=== PATIENT | female | born 1960 | race Caucasian/White ===

== ENCOUNTER 2018-04-10 02:37 | Inpatient (IN) | payer OTHER ==
[~2018-04-10] VITALS: Ht 162.6 cm; Wt 104.0 kg
[~2018-04-10 02:37] MED LIST: ASPIRIN81 M4 PO; DIOVAN80 M1 PO; GLUCOPHAGE1000 M1 PO; LEVEMIR FL100 UNIT/1 SC; LEVEMIR100 UNIT/1 SC; MELOXICAM15 M1 PO
--- NOTE | 2018-04-10 15:09 | RADIOLOGY REPORT ---
EXAMINATION: XR PORTABLE CHEST CLINICAL INFORMATION: Status post pericardial window COMPARISON: 04/03/2018 TECHNIQUE: Portable frontal view of the chest was obtained. FINDINGS: Lungs are well expanded and clear. No pulmonary edema, consolidation, pneumothorax or pleural effusion. Cardiac silhouette is normal in size. A mediastinal drainage catheter projects over the midline of the cardiac silhouette. The visualized bones are intact. The upper abdomen is unremarkable. IMPRESSION: 1. No acute pulmonary disease. 2. Cardiac silhouette is normal in size and a single mediastinal drainage tube is noted.
[2018-04-10 16:00] VITALS: BP 160/82
--- NOTE | 2018-04-10 17:05 | Admission Certification ---
Admission Certification Certification Statement - As attending physician, I certify that at the time of - admission, based on clinical presentation, severity of - symptoms, need for further diagnostic testing and - therapeutic interventions, and risk of adverse outcomes - without in-hospital treatment, in my clinical assessment, - this patient requires an acute hospital stay for a minimum - of two nights or longer. I have also considered psychsocial - factors such as support system, advanced age, financial - issues, cognitive issues, and failed out-patient treatments, - past re-admission history, safety of patient, and lack of - compliance as applicable. Specific rationale supporting this admission is: Major cardiac surgery with extended intensive care unit stay
--- NOTE | 2018-04-10 17:08 | Operative Report ---
Operative/Inv Procedure Report Surgery Date: 04/10/18 Name of Procedure: Pericardial window Pre-Operative Diagnosis: Pericardial effusion Post-Operative Diagnosis: Same Estimated Blood Loss: less than 50ml Surgeon/Production Maintenance Technician: Mckenzie Garcia MD,Immanuel Anna Anesthesia: general endotracheal tube Operative/Procedure Note Note: After placement of monitoring lines and induction of general anesthesia patient was prepped and draped in a sterile fashion. An incision was made above the xiphoid and lower portion of the sternum. The rectus fascia was divided in the midline. The xiphoid was resected to allow for visualization and the diaphragmatic attachments to the undersurface of the sternum were divided with electrocautery. The edge of the pericardium was grasped and incised. A 300 cc of serous effusion was drained completely. The fluid was sent for cytology culture cell count and chemistries. A portion of the pericardium anteriorly was resected and sent for permanent pathology. The pericardium was then drained with a 36 Wolof angled chest tube. The fascia was reapproximated in the midline and the skin was reapproximated with a running Vicryl suture. The patient tolerated the procedure well was brought to the recovery room awake and extubated in stable condition. CC: Guero YOU PHD,Rj Hinton
--- NOTE | 2018-04-10 17:10 | PN- Thoracic Surgery ---
Subjective Subjective: POSTOP CHECK Patient reports incisional postop pain, controlled with second watch sergeant. She states she is hungry and is requesting to eat. She reports tolerating ice chips. She reports voiding. Denies chest pain, sob or difficulty breathing. Objective Vital Signs and I&Os Vital Signs Date Time Temp Pulse Resp B/P B/P Pulse O2 O2 Flow FiO2 Mean Ox Delivery Rate 04/10 1450 100 Nasal 3.0L Cannula Physical Exam: Vitals - afebrile, HR 107, RR 18, BP 160/82 100% on 3L Gen - resting comfortably in nad Cardiac - distant heart sounds noted Chest - midline dressing in place, with scant drainage, anterior CT to waterseal with 90 cc serosanguineous drainage noted, no air leak, appropriately tender kamille-incisionally Lungs - CTAB Abd - softly distended, nontender Ext - alps in place, no edema or calf pain Current Medications: Current Medications Sig/Harley Start time Last Medication Dose Route Stop Time Status Admin Acetaminophen 1,000 MG Q6P PRN 04/10 1545 AC IV 04/11 1544 Cefazolin Sodium 2 GM IQ8 04/10 1600 AC N/A 1 UNIT IV 04/11 0029 Dextrose/Sodium 1,000 ML .[id number] 04/10 1545 AC Chloride IV Docusate Sodium 100 MG DAILY NEEDED PRN 04/10 1545 AC PO Heparin Sodium 5,000 UNIT Q8 04/10 2200 AC (Porcine) SC Hydromorphone HCl 50 MG Q24H PRN 04/10 1545 CAN Sodium Chloride 45 ML IV Hydromorphone HCl 50 MG Q24H PRN 04/10 1500 AC Sodium Chloride 45 ML IV Insulin Aspart 0 TIDAC 04/10 1700 AC SC Losartan Potassium 25 MG DAILY 04/11 0900 AC PO Nicotine 21 MG DAILY 04/10 1419 AC TOP Polyethylene Glycol 17 GM DAILY NEEDED PRN 04/10 1545 AC PO Results Last 48 Hours of Labs: Laboratory Tests 04/10 04/10 UNK UNK Hematology Lymphocytes (%) 65 % Normal PMNs (%) 4 Misc Hematology Test (%) Other Body Source Fluid WBC (0 - 5 /CUMM) Fld Mesothelial Cells (%) Fld Total RBCs Counted (0 /CUMM) Fluid Tot Bilirubin (mg/dL) 0.3 Fluid LDH (U/L) 562 Fluid Amylase (U/L) < 30 Recent Imaging Studies: SERVICE DATE: 04/10/18140 EXAM TYPE: RAD - XRY-PORTABLE CHEST XRAY EXAMINATION: XR PORTABLE CHEST CLINICAL INFORMATION: Status post pericardial window COMPARISON: 04/03/2018 TECHNIQUE: Portable frontal view of the chest was obtained. FINDINGS: Lungs are well expanded and clear. No pulmonary edema, consolidation, pneumothorax or pleural effusion. Cardiac silhouette is normal in size. A mediastinal drainage catheter projects over the midline of the cardiac silhouette. The visualized bones are intact. The upper abdomen is unremarkable. IMPRESSION: 1. No acute pulmonary disease. 2. Cardiac silhouette is normal in size and a single mediastinal drainage tube is noted. Assessment/Plan Assessment/Plan 57 F smoker with a history of DM, HTN, COPD and ESTHER s/p pericardial window w/ SHARRON secondary to pericardial effusion, with postop pain Advance to clear liquid diet, IVF Postop abx - ancef x2 Dilaudid second watch sergeant, IV Tylenol for pain CT to WS x 5 days ISS, fingersticks tid ac/hs TRC, wean O2 Nicotine patch DVT ppx - hsq, alps Encourage oob ambulation F/u OR cultures Labs in am Core Measures Venous Thromboembolism VTE Risk Factors Surgery No Mechanical VTE Prophylaxis d/t N/A MechProphylax Ordered No VTE Pharm Prophylaxis d/t NA PharmProphylax ordered
[2018-04-10 18:00] VITALS: BP 113/51
[2018-04-10 19:47] VITALS: BP 131/69
[2018-04-10 22:00] VITALS: BP 143/71
[2018-04-11] VITALS (9 sets, daily range): BP systolic 108–148; BP diastolic 52–83
[2018-04-11 04:47] LABS: ABSOLUTE BASOPHIL COUNT 0 /CUMM (0.0-0.2); ABSOLUTE EOSINOPHIL COUNT 0 /CUMM (0.0-0.7); ABSOLUTE GRANULOCYTE CT 12.1 /CUMM (1.4-6.5); ABSOLUTE LYMPH COUNT 1.4 /CUMM (1.2-3.4); BASOPHIL % 0 % (0.0-2.0); EOSINOPHIL % 0 % (0-5); GRANULOCYTE % 83.6 % (42.2-75.2); HEMATOCRIT 39.7 % (37-47); MEAN CORPUSCULAR HGB 22.6 PG (27.0-31.0); MEAN CORPUSCULAR HGB CONC 31.5 G/DL (33.0-37.0); MEAN CORPUSCULAR VOLUME 71.6 FL (81.0-99.0); MEAN PLATELET VOLUME 10.8 FL (7.4-10.4); PLATELET COUNT 252 /CUMM (130-400); RED BLOOD CELL CT 5.54 /CUMM (4.20-5.40); WHITE BLOOD CELL COUNT 14.5 /CUMM (4.8-10.8)
--- NOTE | 2018-04-11 05:58 | PN- Thoracic Surgery ---
See Addendum Subjective Subjective: PT IN BED WITH PAIN, USING STAND IN OFTEN. DENEIS SOB BUT IS COUGHING. DENIES FEVER VOIDING, +FLATUS. HAS NOT BEEN OOB YET Objective Vital Signs and I&Os Vital Signs Date Time Temp Pulse Resp B/P B/P Pulse O2 O2 Flow FiO2 Mean Ox Delivery Rate 04/11 0400 97.4 103 18 120/60 04/11 0400 92 Nasal 3.0L Cannula 04/11 0241 90 Nasal 2.0L Cannula 04/11 0200 102 18 128/69 04/11 0000 99.2 107 18 136/70 04/11 0000 92 Nasal 2.0L Cannula 04/11 0000 99.2 107 18 116/70 92 Nasal 2.0L Cannula 04/10 2200 108 20 143/71 04/10 1947 98.1 112 20 131/69 04/10 1947 94 Nasal 5.0L Cannula 04/10 1910 Nasal 2.0L Cannula 04/10 1800 98.0 110 13 113/51 04/10 1600 98.2 107 18 160/82 04/10 1600 96 Nasal 2.0L Cannula 04/10 1600 98.2 107 16 160/82 96 Nasal 2.0L Cannula 04/10 1450 100 Nasal 3.0L Cannula Intake & Output 04/11 0800 04/11 0000 04/10 1600 04/10 0800 04/10 0000 04/09 1600 Intake Total 1030 Output Total 1300 Balance -270 Intake, IV 640 Intake, Oral 390 Output, Chest 200 Tube Drainage Output, Urine 1100 Patient 252 lb Weight Weight Bed scale Measurement Method Physical Exam: GEN- NAD RESP- CLEAR CARDIAC- RRR ABD- OBESE, SOFT, NONTENDER. MEDIASTINAL TUBE IN PLACE UNDER STERNUM, SOME SEROSAND DRAINAGE ON DRESSING BUT NOT SATURATED. CT- 350CC SEROSANG OVER LAST 8 HOURS Results Last 48 Hours of Labs: Laboratory Tests 04/11 04/10 04/10 0420 UNK UNK Chemistry Sodium (137 - 145 mmol/L) 135 L Potassium (3.5 - 5.1 mmol/L) 4.5 Chloride (98 - 107 mmol/L) 100 Carbon Dioxide (22 - 30 mmol/L) 27 Anion Gap (5 - 16) 8 BUN (7 - 17 mg/dL) 13 Creatinine (0.5 - 1.0 mg/dL) 0.4 L Estimated GFR (>60 ml/min) > 60 BUN/Creatinine Ratio (7 - 25 %) 32.5 H Hematology CBC w Diff MAN DIFF ORDERED WBC (4.8 - 10.8 /CUMM) 14.5 H RBC (4.20 - 5.40 /CUMM) 5.54 H Hgb (12.0 - 16.0 G/DL) 12.5 Hct (37 - 47 %) 39.7 MCV (81.0 - 99.0 FL) 71.6 L MCH (27.0 - 31.0 PG) 22.6 L MCHC (33.0 - 37.0 G/DL) 31.5 L RDW (11.5 - 14.5 %) 15.0 H Plt Count (130 - 400 /CUMM) 252 MPV (7.4 - 10.4 FL) 10.8 H Gran % (42.2 - 75.2 %) 83.6 H Lymphocytes % (20.5 - 51.1 %) 9.7 L Monocytes % (1.7 - 9.3 %) 6.7 Eosinophils % (0 - 5 %) 0 Basophils % (0.0 - 2.0 %) 0 Absolute Granulocytes (1.4 - 6.5 /CUMM) 12.1 H Segmented Neutrophils (42.2 - 75.2 %) 81 H Band Neutrophils (0.0 - 5.0 %) 1 Absolute Lymphocytes (1.2 - 3.4 /CUMM) 1.4 Lymphocytes (20.5 - 51.1 %) 10 L 65 Monocytes (1.7 - 9.3 %) 8 Absolute Monocytes (0.10 - 0.60 /CUMM) 1.0 H Absolute Eosinophils (0.0 - 0.7 /CUMM) 0 Absolute Basophils (0.0 - 0.2 /CUMM) 0 % Normal PMNs (%) 4 Platelet Estimate (ADEQUATE) ADEQUATE Polychromasia 1+ Hypochromic-Microcytic 1+ Poikilocytosis 1+ Basophilic Stippling 1+ Anisocytosis 1+ Microcytic Cells 1+ Ovalocytes 1+ Misc Hematology Test (%) Other Body Source Fluid WBC (0 - 5 /CUMM) Fld Mesothelial Cells (%) Fld Total RBCs Counted (%) 100 Fluid Tot Bilirubin (mg/dL) 0.3 Fluid LDH (U/L) 562 Fluid Amylase (U/L) < 30 Assessment/Plan Assessment/Plan 57YO F SP PERICARDIAL WINDOW POD1. STABLE DC IVC, URINE OUTPUT VERY GOOD DIABETIC DIET INSULIN SLIDING SCALE CT- CONT LCWS, LIKELY TO BE IN FOR AT LEAST 5 DAYS CONT STAND IN FOR NOW DVT PPX- ALPS AND HSQ OOB ENCOURAGE IS Core Measures Venous Thromboembolism VTE Risk Factors Surgery No Mechanical VTE Prophylaxis d/t N/A MechProphylax Ordered No VTE Pharm Prophylaxis d/t NA PharmProphylax ordered
--- NOTE | 2018-04-11 06:42 | RADIOLOGY REPORT ---
EXAMINATION: XR PORTABLE CHEST CLINICAL INFORMATION: Chest discomfort COMPARISON: 04/10/2018 TECHNIQUE: Portable frontal view of the chest was obtained. FINDINGS: Lung volumes are symmetric. There is suggestion of trace left basilar atelectasis. No focal consolidation is seen. No evidence of pneumothorax, pleural effusion, or pulmonary edema. The cardiac silhouette is at the upper limits of normal in size. No acute osseous findings are seen. IMPRESSION: No acute cardiopulmonary findings.
--- NOTE | 2018-04-11 10:31 | Patient Discharge Instructions ---
Discharge Instructions General Discharge Information You were seen/treated for: Pericardial effusion You had these procedures: Pericardial window on 04/10/18 Watch for these problems: Increased pain, fever, chills, chest pain, shortness of breath, redness, swelling or drainage from incision No bath, but you may shower: Yes Other wound care: Keep incision clean and dry Continue on indomethacin as an anti-inflammatory to prevent recurrent pericardial fluid. Special Instructions: Follow-up with Dr. Rincon in approximately 7-10 days You may keep the dressing in place until then. If it falls off, apply a waterproof bandage to the site if available. Do not submerge the wound but you may shower Please call to schedule follow-up appointment with ribbon weaver Dr. Jack in 2 weeks Diet Continue normal diet: Yes Recommended Diet: Diabetic Activity Full Activity/No Limits: No Activity Self Limited: Yes Pounds, do NOT lift more than: 10 Other activity limits: No heavy lifting or strenous activity Acute Coronary Syndrome Inclusion Criteria At DC or during hospital stay patient has or had the following: ACS DIAGNOSIS No Discharge Core Measures Meds if any: Prescribed or Continued at Discharge Meds if any: NOT Prescribed or Continued at Discharge Congestive Heart Failure Inclusion Criteria At DC or during hospital stay patient has or had the following: CHF DIAGNOSIS No Discharge Core Measures Meds if any: Prescribed or Continued at Discharge Meds if any: NOT Prescribed or Continued at Discharge Cerebrovascular accident Inclusion Criteria At DC or during hospital stay patient has or had the following: CVA/TIA Diagnosis No Discharge Core Measures Meds if any: Prescribed or Continued at Discharge Meds if any: NOT Prescribed or Continued at Discharge Venous thromboembolism Inclusion Criteria VTE Diagnosis No VTE Type NONE VTE Confirmed by (Test) NONE Discharge Core Measures - Per Current guidelines, there needs to be overlap - treatment for the first 5 days of Warfarin therapy. - If discharged on Warfarin prior to 5 days of - overlap therapy, the patient will need to be - assessed for post discharge needs including - *Post discharge parental anticoagulation - *Warfarin and/or parental anticoagulation education - *Follow up date to check INR post discharge At least 5 days overlap therapy as Inpatient No Meds if any: Prescribed or Continued at Discharge Note: Overlap Therapy is Warfarin and Anticoagulant Meds if any: NOT Prescribed or Continued at Discharge
--- NOTE | 2018-04-11 12:12 | ECHOCARDIOGRAM REPORT ---
PIERO PAN Age: 57 : Gender: F Exam Date: 04/10/2018 11:52 Exam Location: Outpatient Ht (in): 64 Wt (lb): 250 BSA: 2.32 BP: 124 / 76 Ordering Physician: Immanuel Rincon MD Referring Physician: Immanuel Rincon MD Technologist: Rick Armstrong RDCS Room Number: Indications: PERICARDIAL EFFUSION Rhythm: Sinus Technical Quality: Good Medications Propofol administered by Anesthesiology. Ease of Transducer Insertion No Difficulty Complications None. Technical Difficulty FINDINGS Left Ventricle Normal global left ventricular size, wall thickness, systolic function with no obvious regional wall motion abnormalities. Right Ventricle Right ventricle not well visualized, grossly normal. Right Atrium Normal right atrial size. Left Atrium Normal left atrial size. LA Appendage Normal left atrial appendage. IA Septum Normal interatrial septum. Mitral Valve Mitral valve thickened. Mild mitral regurgitation. Aortic Valve Trileaflet aortic valve. Focal thickening of the aortic valve cusps. No aortic stenosis. No aortic regurgitation. Tricuspid Valve Structurally normal tricuspid valve. Pulmonic Valve Structurally normal pulmonic valve. Pericardium Moderate pericardial effusion. Echocardiographic findings suggest a mildly hemodynamically significant pericardial effusion. Great Vessels Normal size aortic root and proximal ascending aorta. CONCLUSIONS INTRAOPERATIVE SHARRON Impression: 1. Minimal aortic sclerosis 2. Mild mitral leaflet thickening with mild mitral insufficiency 3. A moderate sized circumferential pericardial effusion is present which is most prominent posteriorly. There is evidence of early hemodynamic compromise with mild right atrial systolic collapse, best seen on the 4 chamber view. 4. The left atrium and left atrial appendage appear normal. 5. The left ventricular chamber size and systolic function are normal 6. The right heart structures appear normal; a Eustachian valve remnant is present. 7. There is no evidence of atrial level shunt; an agitated contrast saline injection was not performed. 8. The ascending aorta appears normal. The patient was monitored by SHARRON throughout the surgical procedure with no evidence of anatomic issues or complications. At the completion of the surgical procedure, a complete set of images was again obtained and there was no evidence of any significant residual pericardial fluid. At that time, the SHARRON probe was removed. No complications were incurred from the SHARRON procedure. Charley Ovalles M.D. (Electronically Signed) Final Date: 11 April 2018 12:11 MEASUREMENTS (Male / Female) Normal Values
--- NOTE | 2018-04-11 14:49 | Cons- Cardiology ---
General Information and HPI Consulting Request Date of Consult: 04/11/18 Requested By: Mceknzie Garcia MD,Immanuel Anna History of Present Illness: Hayley is a 57 year old female with history of hypertension, tobacco abuse and obesity who initially presented for a cardiac clearance prior to bariatric surgery. This patient underwent an echocardiogram that showed a small to moderate pericardial effusion of unclear etiology but without any hemodynamic findings that would be consistent with tamponade. At her baseline she can walk at a brisk pace for a good distance. She will note occasional shortness of breath with activity but it is not a prominent symptom. There was no associated orthopnea. More recently this patient has noted lightheadedness. Otherwise she denies any chest pain, pressure or tightness. She will feel her heart racing once every couple on months for a short period. These palpitations begin and end suddenly and are not associated with lightheadedness or shortness of breath. In consideration of a persistent pericardial effusion that has not resolved on multiple serial echo's it was decided to perform a pericardial window for both diagnosis and therapeutics. Her most recent ECG did show low voltage and tachycardia. She is now doing well post procedure. In addition to her echocardiogram which showed a normal EF of 60% she has a moderate pericardial effusion, mild LVH and trace TR. The patient also had a stress test. This study showed a small anterior fixed defect most likely related to breast tissue attenuation artifact. No ischemia was identified and her EF was normal at 69%. Allergies/Medications Allergies: Coded Allergies: No Known Allergies (04/03/18) Home Med List: Insulin Detemir (Levemir Flextouch) 100 UNIT/ML (3 ML) INSULN.PEN 60 U SC QHS DM (Reported) Meloxicam 15 MG TABLET 1 TAB PO DAILY PAIN (Reported) Metformin HCl (Glucophage) 1,000 MG TABLET 1 TAB PO BID DIABETES (Reported) Valsartan (Diovan) 80 MG TABLET 1 TAB PO DAILY BP (Reported) Past History Medical History Blood Transfusion Hx: No Neurological: peripheral neuropathy, vertigo EENT: hearing loss Cardiovascular: hypertension, pericardial effusion Respiratory: bronchitis, COPD, obstructive sleep apnea Musculoskeletal: FRACTURE (L ANKLE/R ARM) Psychiatric: anxiety Endocrine: diabetes, obesity Other Medical Hx: drainage of abcess on buttock left ankle and right humeral fractures Surgical History Surgical History: breast biopsy, , PILONIDAL CYST REMOVAL, tubal ligation Psychosocial History Where Do You Live? Home Services at Home: None Smoking Status: Current Everyday Smoker Exam & Diagnostic Data Vital Signs and I&O Vital Signs Date Time Temp Pulse Resp B/P B/P Pulse O2 O2 Flow FiO2 Mean Ox Delivery Rate 04/11 1200 98.2 99 18 140/82 04/11 1000 98.0 130 24 140/78 04/11 0920 93 Nasal 3.0L Cannula 04/11 0912 105 138/80 04/11 0800 97.7 94 18 128/72 04/11 0800 94 Nasal 3.0L Cannula 04/11 0800 97.7 97 18 128/72 95 Nasal 3.0L Cannula 04/11 0400 97.4 103 18 120/60 04/11 0400 92 Nasal 3.0L Cannula 04/11 0241 90 Nasal 2.0L Cannula 04/11 0200 102 18 128/69 04/11 0000 99.2 107 18 136/70 04/11 0000 92 Nasal 2.0L Cannula 04/11 0000 99.2 107 18 116/70 92 Nasal 2.0L Cannula 04/10 2200 108 20 143/71 04/10 1947 98.1 112 20 131/69 04/10 1947 94 Nasal 5.0L Cannula 04/10 1910 Nasal 2.0L Cannula 04/10 1800 98.0 110 13 113/51 04/10 1600 98.2 107 18 160/82 04/10 1600 96 Nasal 2.0L Cannula 04/10 1600 98.2 107 16 160/82 96 Nasal 2.0L Cannula 04/10 1450 100 Nasal 3.0L Cannula Intake & Output 04/11 1600 04/11 0800 04/11 0000 04/10 1600 04/10 0800 04/10 0000 Intake Total 1030 Output Total 1300 Balance -270 Intake, IV 640 Intake, Oral 390 Output, Chest 200 Tube Drainage Output, Urine 1100 Patient 252 lb Weight Weight Bed scale Measurement Method Physical Exam: General: WD/WN male in NAD; alert and oriented x 3 HEENt: NC/AT, PERRL, EOMI Neck: no JVD, no carotid bruit Heart: RRR w/o murmur Lungs: clear bilaterally Abdomen: soft, NT, +ve bowel sounds Extremities: no edema Assessment/Plan Assessment/Plan * This patient is noted to have a normal EF but does have a moderate pericardial effusion with mild right atrial collapse that is consistent with early tamponade although there is no respiratory flow variation across her mitral valve that is definitely diagnostic of tamponade. The patient feels well except for exertional shortness of breath that is likely due to her being overweight. She also had some lightheadedness. Due to her persistent effusion of unclear etiology it was decided to pursue a pericardial window for both diagnostic and therapeutic purposes. This procedure went well and she feels well except for some incisional discomfort. Cytology is pending but the patient is stable for discharge with follow up in the office to review her results if okay with surgery. * This patient has exertional shortness of breath that may well be related to COPD or even obesity. In consideration of her abnormal ECG that shows inferior Q waves suggestive of prior OK and considering multiple risk factors for coronary artery disease including tobacco abuse, hypertension and obesity, the patient was risk stratified with a stress test that was negative for ischemia. Consult Acknowledgment - Thank you for your consult request.
[2018-04-12] VITALS (7 sets, daily range): BP systolic 106–120; BP diastolic 58–76
--- NOTE | 2018-04-12 05:53 | PN- Thoracic Surgery ---
See Addendum Subjective Subjective: feeling ok, using claims service representative, pain improved, limited oob, no cp/sob, "bored" Objective Vital Signs and I&Os Vital Signs Date Time Temp Pulse Resp B/P B/P Pulse O2 O2 Flow FiO2 Mean Ox Delivery Rate 04/12 0400 97.4 100 16 116/70 04/12 0400 93 Nasal 1.0L Cannula 04/12 0400 97.4 100 16 116/70 93 Nasal 1.0L Cannula 04/12 0038 92 Nasal 1.0L Cannula 04/12 0000 97.3 97 18 106/60 04/12 0000 92 Nasal 1.0L Cannula 04/12 0000 97.3 97 18 106/60 92 Nasal 1.0L Cannula 04/11 2227 100 22 04/11 2039 94 Nasal 1.0L Cannula 04/11 1800 97.5 98 16 110/60 04/11 1600 97.8 100 24 108/52 04/11 1600 97.8 100 24 108/52 93 Nasal 1.0L Cannula 04/11 1600 93 Nasal 1.0L Cannula 04/11 1400 97.7 102 22 140/80 04/11 1200 98.2 99 18 140/82 04/11 1200 91 Nasal 1.0L Cannula 04/11 1200 97.8 98 23 148/83 89 Room Air 04/11 1000 98.0 130 24 140/78 04/11 0920 93 Nasal 3.0L Cannula 04/11 0912 105 138/80 04/11 0800 97.7 94 18 128/72 04/11 0800 94 Nasal 3.0L Cannula 04/11 0800 97.7 97 18 128/72 95 Nasal 3.0L Cannula Intake & Output 04/12 0800 16 0000 15 1600 15 0800 04/11 0000 04/10 1600 Intake Total 876 161 2974 Output Total 370 590 9502 Balance -275 239 -270 Intake, IV 125 249 640 Intake, Oral 240 400 390 Output, Chest 40 60 200 Tube Drainage Output, Urine 902 036 6661 Patient 252 lb Weight Weight Bed scale Measurement Method Physical Exam: gen- nad card-s1s2 pulm- ctab, mediastinal tube in place, ttp at insertion site, dressing w sersang staining abd-soft nt ext-calves soft nt CT: 130/24hrs, serosang, no al UO: nr/600/350 FS: 331, 286, 335 Assessment/Plan Assessment/Plan A- POD2 sp pericardial window with mediastinal tube placement for incidental finding of significant pericardial effusion, stable, with elevated FS. P- dc claims service representative, try prn pain meds, HL riss, added 30 levemir daily (may need to increase, home dose 60qd) ada diet as tolerated CT to lcws, keep in place until tues dvt ppx will dw attending
[2018-04-13 07:02] VITALS: BP 112/88
--- NOTE | 2018-04-13 07:11 | PN- Thoracic Surgery ---
Subjective Subjective: Patient reports pain when she cough, which is controlled with oral percocet. She reports limited ambulation. She is tolerating an ada diet. She reports passing flatus. Denies moving her bowels. She denies nausea or vomiting, chest pain, sob or difficulty breathing. She states her accuchecks at home are normally 100-150. She offers no other complaints. Objective Vital Signs and I&Os Vital Signs Date Time Temp Pulse Resp B/P B/P Pulse O2 O2 Flow FiO2 Mean Ox Delivery Rate 04/13 0702 98.2 96 20 112/88 95 Nasal 2.0L Cannula 04/13 0000 94 Nasal 2.0L Cannula 04/12 2205 99.1 100 20 120/70 95 Nasal 2.0L Cannula 04/12 1750 98.7 106 20 110/58 90 Room Air 04/12 1615 94 Room Air Room Air 04/12 1600 Room Air 04/12 1600 97.5 105 18 106/58 91 Room Air 04/12 1200 97.8 100 18 118/68 94 Room Air 04/12 0855 118/76 04/12 0800 Nasal 2.0L Cannula 04/12 0800 97.8 97 19 118/76 96 Nasal 3.0L Cannula Intake & Output 04/13 0800 17 0000 04/12 1600 04/12 0800 04/12 0000 04/11 1600 Intake Total 200 600 980 187 365 649 Output Total 15 830 1620 640 410 Balance 185 600 150 -1433 -275 239 Intake, IV 20 187 125 249 Intake, Oral 200 600 960 240 400 Number 0 Bowel Movements Output, Chest 15 30 70 40 60 Tube Drainage Output, Urine 800 1550 600 350 Patient 249 lb Weight Weight Bed scale Measurement Method Physical Exam: Gen - nad Cardiac - S1S2 noted Lungs - diminished at bases Chest - mediastinal tube in place, dressing w sersang staining, approx 50 cc serosang drainage in the last night, no air leak, appropriately tender Abd - soft, normoactive bowel sounds, nontender Ext - no edema or calf tenderness Current Medications: Current Medications Sig/Harley Start time Last Medication Dose Route Stop Time Status Admin Albuterol Sulfate 3 ML Q4P PRN 04/10 1930 AC 04/12 INH 0023 Docusate Sodium 100 MG BID 04/11 0900 AC 04/12 PO 2149 Heparin Sodium 5,000 UNIT Q8 04/10 2200 AC 04/12 (Porcine) SC 1438 Hydromorphone HCl 2 MG Q4P PRN 04/12 0615 AC 04/13 PO 0621 Hydromorphone HCl 4 MG Q4P PRN 04/12 0615 AC PO Insulin Aspart 0 AT BEDTIME 04/11 2100 AC 04/11 SC 2219 Insulin Aspart 0 TIDAC 04/11 0800 AC 04/12 SC 1650 Insulin Detemir 30 UNITS DAILY 04/12 0900 AC 04/12 SC 0854 Losartan Potassium 25 MG DAILY 04/11 0900 AC 04/12 PO 0855 Morphine Sulfate 2 MG Q2P PRN 04/12 0615 AC IV Nicotine 21 MG DAILY 04/10 1419 AC 04/12 TOP 0855 Ondansetron HCl 4 MG Q6P PRN 04/10 1715 AC IV Polyethylene Glycol 17 GM DAILY 04/11 0900 AC 04/12 PO 0855 Results Last 48 Hours of Labs: Laboratory Tests 04/13 06 Chemistry Sodium Pending Potassium Pending Chloride Pending Carbon Dioxide Pending Anion Gap Pending BUN Pending Creatinine Pending Glucose Pending Calcium Pending Phosphorus Pending Magnesium Pending Total Bilirubin Pending AST Pending ALT Pending Albumin Pending Hematology CBC w Diff Pending WBC Pending RBC Pending Hgb Pending Hct Pending MCV Pending MCH Pending MCHC Pending RDW Pending Plt Count Pending MPV Pending Assessment/Plan Assessment/Plan 57 F POD 3 s/p pericardial window with mediastinal tube placement for incidental pericardial effusion still with elevated FS Keep CT to [facility] until Saturday Pain regimen prn Cont asa diet RISS, add additional 30 levemir daily DVT ppx - alps, hsq Bowel regimen on board Encourage IS, ambulation F/u cbc, lytes ok Will d/w Dr. Rincon Core Measures Venous Thromboembolism VTE Risk Factors Surgery No Mechanical VTE Prophylaxis d/t N/A MechProphylax Ordered No VTE Pharm Prophylaxis d/t NA PharmProphylax ordered
[2018-04-13 08:09] LABS: ABSOLUTE BASOPHIL COUNT 0.1 /CUMM (0.0-0.2); ABSOLUTE EOSINOPHIL COUNT 0.1 /CUMM (0.0-0.7); ABSOLUTE GRANULOCYTE CT 6.7 /CUMM (1.4-6.5); ABSOLUTE LYMPH COUNT 2.6 /CUMM (1.2-3.4); ABSOLUTE MONOCYTE COUNT 0.8 /CUMM (0.10-0.60); BASOPHIL % 0.6 % (0.0-2.0); EOSINOPHIL % 1.1 % (0-5); GRANULOCYTE % 65.3 % (42.2-75.2); MEAN CORPUSCULAR HGB CONC 32.2 G/DL (33.0-37.0); MEAN CORPUSCULAR VOLUME 71.2 FL (81.0-99.0); MEAN PLATELET VOLUME 12.3 FL (7.4-10.4); PLATELET COUNT 268 /CUMM (130-400); RBC DISTRIBUTION WIDTH 15.6 % (11.5-14.5); RED BLOOD CELL CT 5.76 /CUMM (4.20-5.40); WHITE BLOOD CELL COUNT 10.3 /CUMM (4.8-10.8)
[2018-04-13 14:24] VITALS: BP 118/80
[2018-04-13 21:49] VITALS: BP 122/72
[2018-04-14 06:00] VITALS: BP 110/70
--- NOTE | 2018-04-14 07:36 | PN- Thoracic Surgery ---
See Addendum Subjective Subjective: pain well controlled. no cough, no sob, no cp, no fever. Objective Vital Signs and I&Os Vital Signs Date Time Temp Pulse Resp B/P B/P Pulse O2 O2 Flow FiO2 Mean Ox Delivery Rate 04/14 0600 98.1 90 20 110/70 94 Nasal 2.0L Cannula 04/14 0000 Nasal 2.0L Cannula 04/13 2149 98.7 102 20 122/72 94 Nasal Cannula 04/13 2008 94 Nasal 2.0L Cannula 04/13 1424 97.8 111 20 118/80 94 Nasal Cannula 04/13 1339 90 Room Air 04/13 0930 96 112/88 04/13 0800 Nasal 2.0L Cannula Intake & Output 04/14 0800 04/14 0000 04/13 1600 04/13 0800 04/13 0000 04/12 1600 Intake Total 120 120 600 200 600 980 Output Total 10 15 830 Balance 110 120 600 185 600 150 Intake, IV 20 Intake, Oral 120 120 600 200 600 960 Output, Chest 10 15 30 Tube Drainage Output, Urine 800 Patient 249 lb Weight Weight Bed scale Measurement Method Physical Exam: wdwn, aox3, nad heent-wnl trachea midline Chest:dressing with scant dry s/s drainage. tube in place. serous drainage in tube. no leak. heart: RRR BLE: no edema CT drainage: 08/11/30 last 24hrs Results Last 48 Hours of Labs: Laboratory Tests 04/13 06 Chemistry Sodium (137 - 145 mmol/L) 139 Potassium (3.5 - 5.1 mmol/L) 4.5 Chloride (98 - 107 mmol/L) 99 Carbon Dioxide (22 - 30 mmol/L) 31 H Anion Gap (5 - 16) 8 BUN (7 - 17 mg/dL) 12 Creatinine (0.5 - 1.0 mg/dL) 0.4 L Estimated GFR (>60 ml/min) > 60 Glucose (65 - 99 mg/dL) 195 H Calcium (8.4 - 10.2 mg/dL) 9.2 Phosphorus (2.5 - 4.5 mg/dL) 3.5 Magnesium (1.6 - 2.3 mg/dL) 1.6 Total Bilirubin (0.2 - 1.3 mg/dL) 0.5 AST (14 - 36 U/L) 15 ALT (9 - 52 U/L) 26 Albumin (3.5 - 5.0 g/dL) 3.2 L Hematology CBC w Diff NO MAN DIFF REQ WBC (4.8 - 10.8 /CUMM) 10.3 RBC (4.20 - 5.40 /CUMM) 5.76 H Hgb (12.0 - 16.0 G/DL) 13.2 Hct (37 - 47 %) 41.0 MCV (81.0 - 99.0 FL) 71.2 L MCH (27.0 - 31.0 PG) 23.0 L MCHC (33.0 - 37.0 G/DL) 32.2 L RDW (11.5 - 14.5 %) 15.6 H Plt Count (130 - 400 /CUMM) 268 MPV (7.4 - 10.4 FL) 12.3 H Gran % (42.2 - 75.2 %) 65.3 Lymphocytes % (20.5 - 51.1 %) 25.3 Monocytes % (1.7 - 9.3 %) 7.7 Eosinophils % (0 - 5 %) 1.1 Basophils % (0.0 - 2.0 %) 0.6 Absolute Granulocytes (1.4 - 6.5 /CUMM) 6.7 H Absolute Lymphocytes (1.2 - 3.4 /CUMM) 2.6 Absolute Monocytes (0.10 - 0.60 /CUMM) 0.8 H Absolute Eosinophils (0.0 - 0.7 /CUMM) 0.1 Absolute Basophils (0.0 - 0.2 /CUMM) 0.1 Assessment/Plan Assessment/Plan 57 F POD 4 s/p pericardial window with mediastinal tube placement for incidental pericardial effusion Keep CT to [facility] until Saturday Pain regimen prn Cont asa diet Ween O2 Elevated FS: Levemir at home dose of 60u as of yesterday, consider endocrine consult if FS continue to be elevated. Metformin on hold. DVT ppx - alps, hsq Bowel regimen on board Encourage IS, ambulation Core Measures Venous Thromboembolism VTE Risk Factors Surgery No Mechanical VTE Prophylaxis d/t N/A MechProphylax Ordered No VTE Pharm Prophylaxis d/t NA PharmProphylax ordered
--- NOTE | 2018-04-14 15:15 | PN- Cardiology ---
Subjective Subjective: * Hayley is upset that she has not yet been discharged. * There continues to be drainage from her pericardial tube. * sinus rhythm Objective Vital Signs and I&Os Vital Signs Date Time Temp Pulse Resp B/P B/P Pulse O2 O2 Flow FiO2 Mean Ox Delivery Rate 04/14 0919 92 Nasal 2.0L Cannula 04/14 0800 97 Nasal 2.0L Cannula 04/14 0759 90 110/70 04/14 0600 98.1 90 20 110/70 94 Nasal 2.0L Cannula 04/14 0000 Nasal 2.0L Cannula 04/13 2149 98.7 102 20 122/72 94 Nasal Cannula 04/13 2008 94 Nasal 2.0L Cannula Intake & Output 04/14 1600 04/14 0800 04/14 0000 04/13 1600 04/13 0800 04/13 0000 Intake Total 470 120 120 600 200 600 Output Total 10 10 15 Balance 460 110 120 600 185 600 Intake, IV 20 Intake, Oral 450 120 120 600 200 600 Output, Chest 10 10 15 Tube Drainage Patient 249 lb Weight Weight Bed scale Measurement Method Physical Exam: General: WD/WN male in NAD; alert and oriented x 3 HEENt: NC/AT, PERRL, EOMI Neck: no JVD, no carotid bruit Heart: RRR w/o murmur Lungs: clear bilaterally Abdomen: soft, NT, +ve bowel sounds Extremities: no edema Assessment/Plan Assessment/Plan * This patient is noted to have a normal EF but does have a moderate pericardial effusion with mild right atrial collapse that is consistent with early tamponade although there is no respiratory flow variation across her mitral valve that is definitely diagnostic of tamponade. The patient feels well except for exertional shortness of breath that is likely due to her being overweight. She also had some lightheadedness. Due to her persistent effusion of unclear etiology it was decided to pursue a pericardial window for both diagnostic and therapeutic purposes. This procedure went well and she feels well except for some incisional discomfort. Cytology is pending. Would make sure fluid is sent off for gram stain with bacterial and fungal culture, AFB stain and mycobacterial culture and adenosine deaminase. * This patient has exertional shortness of breath that may well be related to COPD or even obesity. In consideration of her abnormal ECG that shows inferior Q waves suggestive of prior VA and considering multiple risk factors for coronary artery disease including tobacco abuse, hypertension and obesity, the patient was risk stratified with a stress test that was negative for ischemia. Continue telemetry? Yes
[2018-04-14 15:22] VITALS: BP 108/74
--- NOTE | 2018-04-14 18:23 | Cons- Endocrinology ---
General Information and HPI Consulting Request Date of Consult: 04/14/18 Requested By: surgical team Reason for Consult: uncontrolled diabetes Source of Information: patient, old records Exam Limitations: no limitations History of Present Illness: This 57-year-old woman has a long-standing history of diabetes associated with morbid obesity. She came into the hospital because of a pericardial effusion and had a pericardial window and chest tube inserted. Her sugars have been high ever since she has been in the hospital. She has been placed on insulin which has been gradually increased. She is presently in the hospital on 60 units of Levemir and a relatively small dose NovoLog sliding scale. Her blood sugars today were 195 before breakfast, 310 before lunch, and 256 before dinner. The patient is on 60 units of Levemir at home and metformin 1000 mg twice a day. She states her sugars are usually in fairly good control. 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 He is followed by her primary care doctor who is . Allergies/Medications Allergies: Coded Allergies: No Known Allergies (04/03/18) Home Med List: Insulin Detemir (Levemir Flextouch) 100 UNIT/ML (3 ML) INSULN.PEN 60 U SC QHS DM (Reported) Meloxicam 15 MG TABLET 1 TAB PO DAILY PAIN (Reported) Metformin HCl (Glucophage) 1,000 MG TABLET 1 TAB PO BID DIABETES (Reported) Valsartan (Diovan) 80 MG TABLET 1 TAB PO DAILY BP (Reported) Review of Systems Review of Systems Constitutional: Denies: chills, fever. Cardiovascular: Denies: chest pain. Respiratory: Denies: short of breath. GI: Denies: abdominal pain, nausea, vomiting. Musculoskeletal: Denies: back pain. Past History Medical History Blood Transfusion Hx: No Neurological: peripheral neuropathy, vertigo EENT: hearing loss Cardiovascular: hypertension, pericardial effusion Respiratory: bronchitis, COPD, obstructive sleep apnea Musculoskeletal: FRACTURE (L ANKLE/R ARM) Psychiatric: anxiety Endocrine: diabetes, obesity Other Medical Hx: drainage of abcess on buttock left ankle and right humeral fractures Surgical History Surgical History: breast biopsy, , PILONIDAL CYST REMOVAL tubal ligation Psychosocial History Where Do You Live? Home Services at Home: None Smoking Status: Current Everyday Smoker Exam & Diagnostic Data Last 24 Hrs of Vital Signs/I&O Vital Signs Date Time Temp Pulse Resp B/P B/P Pulse O2 O2 Flow FiO2 Mean Ox Delivery Rate 04/14 1522 99.1 106 20 108/74 92 Room Air 04/14 0919 92 Nasal 2.0L Cannula 04/14 0800 97 Nasal 2.0L Cannula 04/14 0759 90 110/70 04/14 0600 98.1 90 20 110/70 94 Nasal 2.0L Cannula 04/14 0000 Nasal 2.0L Cannula 04/13 2149 98.7 102 20 122/72 94 Nasal Cannula 04/13 Nasal 2.0L Cannula Intake & Output 04/14 1600 04/14 0800 04/14 0000 Intake Total 470 120 120 Output Total 10 10 Balance 460 110 120 Intake, IV 20 Intake, Oral 450 120 120 Output, Chest 10 10 Tube Drainage Vital Signs Date Time Temp Pulse Resp B/P B/P Pulse O2 O2 Flow FiO2 Mean Ox Delivery Rate 04/14 1522 99.1 106 20 108/74 92 Room Air 04/14 09 92 Nasal 2.0L Cannula 04/14 0800 97 Nasal 2.0L Cannula 04/14 0759 90 110/70 04/14 0600 98.1 90 20 110/70 94 Nasal 2.0L Cannula 04/14 0000 Nasal 2.0L Cannula 04/13 2149 98.7 102 20 122/72 94 Nasal Cannula 04/13 Nasal 2.0L Cannula Intake & Output 04/14 1600 04/14 0800 04/14 0000 Intake Total 470 120 120 Output Total 10 10 Balance 460 110 120 Intake, IV 20 Intake, Oral 450 120 120 Output, Chest 10 10 Tube Drainage Physical Exam General Appearance: alert, awake, obese Head: normal appearance Neck: normal inspection Respiratory: normal breath sounds Cardiovascular: regular rate/rhythm Gastrointestinal: normal bowel sounds, soft Extremities: normal inspection Labs/Celso Results: Laboratory Tests 04/13 06 Chemistry Sodium (137 - 145 mmol/L) 139 Potassium (3.5 - 5.1 mmol/L) 4.5 Chloride (98 - 107 mmol/L) 99 Carbon Dioxide (22 - 30 mmol/L) 31 H Anion Gap (5 - 16) 8 BUN (7 - 17 mg/dL) 12 Creatinine (0.5 - 1.0 mg/dL) 0.4 L Estimated GFR (>60 ml/min) > 60 Glucose (65 - 99 mg/dL) 195 H Calcium (8.4 - 10.2 mg/dL) 9.2 Phosphorus (2.5 - 4.5 mg/dL) 3.5 Magnesium (1.6 - 2.3 mg/dL) 1.6 Total Bilirubin (0.2 - 1.3 mg/dL) 0.5 AST (14 - 36 U/L) 15 ALT (9 - 52 U/L) 26 Albumin (3.5 - 5.0 g/dL) 3.2 L Hematology CBC w Diff NO MAN DIFF REQ WBC (4.8 - 10.8 /CUMM) 10.3 RBC (4.20 - 5.40 /CUMM) 5.76 H Hgb (12.0 - 16.0 G/DL) 13.2 Hct (37 - 47 %) 41.0 MCV (81.0 - 99.0 FL) 71.2 L MCH (27.0 - 31.0 PG) 23.0 L MCHC (33.0 - 37.0 G/DL) 32.2 L RDW (11.5 - 14.5 %) 15.6 H Plt Count (130 - 400 /CUMM) 268 MPV (7.4 - 10.4 FL) 12.3 H Gran % (42.2 - 75.2 %) 65.3 Lymphocytes % (20.5 - 51.1 %) 25.3 Monocytes % (1.7 - 9.3 %) 7.7 Eosinophils % (0 - 5 %) 1.1 Basophils % (0.0 - 2.0 %) 0.6 Absolute Granulocytes (1.4 - 6.5 /CUMM) 6.7 H Absolute Lymphocytes (1.2 - 3.4 /CUMM) 2.6 Absolute Monocytes (0.10 - 0.60 /CUMM) 0.8 H Absolute Eosinophils (0.0 - 0.7 /CUMM) 0.1 Absolute Basophils (0.0 - 0.2 /CUMM) 0.1 Assessment/Plan Assessment/Plan This patient presents with uncontrolled diabetes and morbid obesity. She states that her sugars were good on Levemir and metformin. The patient technically needs more pre-meal NovoLog insulin to help bring her sugar down. However she will not stay in the hospital to adjust her insulin regimen. She wants to go home right after her chest tube is removed. We can restart her Metformin tonight and tomorrow morning along with her present insulin regimen. As an outpatient the patient could be on other drugs to help control her sugar better and also lose weight. These include the usage of GLP-1 analogs and also SGLT 2 drugs. If the patient goes home tomorrow I would send her home on metformin and 60 units of Levemir which is what she came in on. I told her that if her sugars remain high she should check with her primary care and we could also follow up with her in the office. Consult Acknowledgment - Thank you for your consult request.
[2018-04-14 22:15] VITALS: BP 108/64
[2018-04-15 06:59] VITALS: BP 102/58
--- NOTE | 2018-04-15 07:28 | PN- Diabetes ---
Assessment/Plan Diabetes Assessment: The patient is anxious to go home today. She feels okay. Her fingerstick blood sugar this morning is 154. She was placed back on metformin last night. Plan: If the patient goes home today she can go home on 60 units of Levemir once a day in the morning which was her dose prior to admission. In addition she can restart her metformin 1000 mg twice a day. She should check her sugars before breakfast and before dinner. If they are high she can discuss this with her primary care doctor or can call our office. Subjective Subjective: Wants to go home Review of Systems Constitutional: Denies: chills, fever. Cardiovascular: Denies: chest pain. Respiratory: Denies: short of breath. Gastrointestinal: Denies: abdominal pain, nausea, vomiting. Skin: Reports: no symptoms. Objective Last 24 Hrs of Vital Signs/I&O Vital Signs Date Time Temp Pulse Resp B/P B/P Pulse O2 O2 Flow FiO2 Mean Ox Delivery Rate 04/15 0659 98.1 88 18 102/58 94 Nasal 2.0L Cannula 04/15 0000 95 Nasal 2.0L Cannula 04/14 2215 99.3 101 20 108/64 94 Nasal Cannula 04/14 2146 94 Nasal 2.0L Cannula 04/14 1522 99.1 106 20 108/74 92 Room Air 04/14 09 92 Nasal 2.0L Cannula 04/14 0800 97 Nasal 2.0L Cannula 04/14 0759 90 110/70 Intake & Output 04/15 0800 04/15 0000 04/14 1600 Intake Total 240 470 Output Total 40 10 Balance 200 460 Intake, IV 20 Intake, Oral 240 450 Output, Chest 40 10 Tube Drainage Patient 229 lb Weight Weight Bed scale Measurement Method Vital Signs Date Time Temp Pulse Resp B/P B/P Pulse O2 O2 Flow FiO2 Mean Ox Delivery Rate 04/15 0659 98.1 88 18 102/58 94 Nasal 2.0L Cannula 04/15 0000 95 Nasal 2.0L Cannula 04/145 99.3 101 20 108/64 94 Nasal Cannula 04/14 2146 94 Nasal 2.0L Cannula 04/14 1522 99.1 106 20 108/74 92 Room Air 04/14 0919 92 Nasal 2.0L Cannula 04/14 0800 97 Nasal 2.0L Cannula 04/14 0759 90 110/70 Intake & Output 04/15 0800 04/15 0000 04/14 1600 Intake Total 240 470 Output Total 40 10 Balance 200 460 Intake, IV 20 Intake, Oral 240 450 Output, Chest 40 10 Tube Drainage Patient 229 lb Weight Weight Bed scale Measurement Method Physical Exam General Appearance: alert, awake, comfortable Neck: normal inspection Respiratory: normal breath sounds Cardiovascular: regular rate/rhythm Extremities: normal inspection Current Medications: Current Medications Sig/Harley Start time Last Medication Dose Route Stop Time Status Admin Albuterol Sulfate 3 ML Q4P PRN 04/10 1930 AC 04/12 INH 0023 Bisacodyl 10 MG ONCE PRN 04/13 1745 AC [place] Docusate Sodium 100 MG BID 04/11 0900 AC 04/14 PO 211 Heparin Sodium 5,000 UNIT Q8 04/10 2200 AC 04/14 (Porcine) SC 2119 Hydromorphone HCl 2 MG Q4P PRN 04/12 0615 AC 04/15 PO 0003 Hydromorphone HCl 4 MG Q4P PRN 04/12 0615 PO Insulin Aspart 0 AT BEDTIME 04/11 2100 AC 04/13 SC 2136 Insulin Aspart 0 TIDAC 04/11 0800 AC 04/14 SC 1800 Insulin Detemir 60 UNITS DAILY 04/13 0900 AC 04/14 SC 0758 Losartan Potassium 25 MG DAILY 04/11 0900 AC 04/14 PO 0759 Metformin HCl 1,000 MG 0800 & 1700 04/14 1845 AC 04/14 PO 1935 Morphine Sulfate 2 MG Q2P PRN 04/12 0615 IV Nicotine 21 MG DAILY 04/10 1419 AC 04/14 TOP 0759 Ondansetron HCl 4 MG Q6P PRN 04/10 1715 IV Polyethylene Glycol 17 GM DAILY 04/11 0900 AC 04/14 PO 0758
[2018-04-15] MEDS ORDERED: INDOMETHACIN25 M1 PO ×2 (10:53→16:02)
--- NOTE | 2018-04-15 11:02 | PN- Thoracic Surgery ---
See Addendum Subjective Subjective: Patient without complaints, no acute events overnight, wishes to be discharged home Objective Vital Signs and I&Os Vital Signs Date Time Temp Pulse Resp B/P B/P Pulse O2 O2 Flow FiO2 Mean Ox Delivery Rate 04/15 0918 95 112/70 04/15 0659 98.1 88 18 102/58 94 Nasal 2.0L Cannula 04/15 0000 95 Nasal 2.0L Cannula 04/14 2215 99.3 101 20 108/64 94 Nasal Cannula 04/14 2146 94 Nasal 2.0L Cannula 04/14 1522 99.1 106 20 108/74 92 Room Air Intake & Output 04/15 1600 04/15 0800 04/15 0000 04/14 1600 04/14 0800 04/14 0000 Intake Total 240 470 120 120 Output Total 40 10 10 Balance 200 460 110 120 Intake, IV 20 Intake, Oral 240 450 120 120 Output, Chest 40 10 10 Tube Drainage Patient 229 lb Weight Weight Bed scale Measurement Method Physical Exam: Well-developed well-nourished no apparent distress. HEENT: Atraumatic, extraocular motion intact Neck: Supple, no lymphadenopathy Respiratory: No respiratory distress lungs clear to auscultation Dressing with small amount of dry serosanguineous drainage Chest tube in place Approximately 50 cc of thin serosanguinous fluid since 0600 Extremities: No edema, no calf pain Neuro: Alert and oriented x3 Psych: Mood affect normal, normal memory normal judgment. Skin: Warm and dry, no rash on exposed skin Assessment/Plan Assessment/Plan 57 F POD 5 s/p pericardial window with mediastinal tube placement for incidental pericardial effusion Keep CT to [facility], monitor fluid output for another 4 hours, recheck at 3 PM, potential discharge later this afternoon if drainage is acceptable. discussed with Dr. Rincon Pain regimen prn Cont asa diet DVT ppx - alps, hsq Bowel regimen on board Encourage IS, ambulation Core Measures Venous Thromboembolism VTE Risk Factors Surgery No Mechanical VTE Prophylaxis d/t N/A MechProphylax Ordered No VTE Pharm Prophylaxis d/t NA PharmProphylax ordered
[2018-04-15 14:47] VITALS: BP 100/60
[2018-04-15] MEDS ORDERED: HYDROMORPHONE HC2 M1 PO ×2 (14:54→16:02)
--- NOTE | 2018-04-15 15:02 | Discharge Summary ---
Visit Information Visit Dates Admission Date: 04/10/18 Discharge Date: 04/15/18 Hospital Course Course Attending Physician: Immanuel Rincon Jr., MD Primary Care Physician: Nino YOU,Ross Mcduffie Consulting Request: Consulting Specialty: Endocrinology Hospital Course: This 57-year-old female who was admitted with pericardial effusion, obtained a SHARRON and was evidence of pericardial effusion that required drainage. She was brought to the operating room for pericardial window and drainage of the pericardial effusion which she tolerated well without complications. A chest tube was left in place on wall suction for several days will be monitored the drainage. The drainage fluid to a minimal amount and the tube was removed. Patient remained medically stable throughout her hospital stay here, she was afebrile, vital signs are stable, no signs of infection. She was started on indomethacin and will follow up with cardiology and thoracic surgery as outpatient. She is being discharged home in a stable condition Allergies: Coded Allergies: No Known Allergies (04/03/18) Disposition Summary Disposition Principal Diagnosis: Pericardial effusion Additional Diagnosis: Status post pericardial window Discharge Disposition: home or self care Discharge Instructions General Discharge Information Code Status: Full Code Patient's Diet: Regular diet Patient's Activity: No strenuous activity, no lifting greater than 10 pounds Follow-Up Instructions/Appts: Follow-up with Dr. Rincon and Dr. Guero Carrasco as directed Medications at Discharge Discharge Medications: Stop taking the following medications: Meloxicam (Meloxicam) 15 MG TABLET ORAL DAILY Continue taking these medications: Metformin HCl (Glucophage) 1,000 MG TABLET 1 Tablet ORAL TWICE DAILY Valsartan (Diovan) 80 MG TABLET 1 Tablet ORAL DAILY Insulin Detemir (Levemir Flextouch) 100 UNIT/ML (3 ML) INSULN.PEN 60 Units Inject into fatty tissue TAKE AT BEDTIME Start taking the following new medications: Hydromorphone HCl (Hydromorphone HCl) 2 MG TABLET 1-2 Tablet ORAL EVERY 4 HOURS NEEDED as needed for PAIN SCALE Qty = 36 No Refills Indomethacin (Indomethacin) 25 MG CAPSULE 1 Capsule ORAL THREE TIMES DAILY Qty = 30 No Refills Instructions: with food Copies To: Immanuel Rincon Jr., MD
== END 2018-04-15 16:30 | DRG 164 ==
LOC: SDA 02:37 → ENRESERV 14:34 → ENTRNSPT 15:51 → EDTRNSPTSTS 15:53 → EDTRNSPT 15:53 → CMPTRNSPT 16:08 → CRI 16:36 → 1NO 04-12 17:41 → ENPENDDIS 04-15 15:03 → ENTRNSPT 04-15 16:07 → CMPTRNSPT 04-15 16:28 → 1NO 04-15 16:30
PROVIDERS: Physician Assistant; Physician Assistant Surgical
PROC: 02BN0ZZ Excision of Pericardium, Open Approach (ICD-10-PCS; principal; 2018-04-10)
PROC: 0W9D00Z Drainage of Pericardial Cavity with Drainage Device, Open Approach (ICD-10-PCS; 2018-04-10)
PROC: B24BZZ4 Ultrasonography of Heart with Aorta, Transesophageal (ICD-10-PCS; 2018-04-11)
DX: J90 Pleural effusion, not elsewhere classified (principal); Z68.41 Body mass index [BMI] 40.0-44.9, adult; I10 Essential (primary) hypertension; F17.210 Nicotine dependence, cigarettes, uncomplicated; E66.9 Obesity, unspecified; E11.42 Type 2 diabetes mellitus with diabetic polyneuropathy; G47.33 Obstructive sleep apnea (adult) (pediatric); F41.9 Anxiety disorder, unspecified; H91.90 Unspecified hearing loss, unspecified ear; Z98.51 Tubal ligation status; Z79.4 Long term (current) use of insulin
CPT/HCPCS: 1NP; 87075; CCU; 36415; 36592; 71045; 82436; 88305; 93005; 93010; 93325; C9290; J0131; J0690; J1170; J1644; J3490; J7042

== ENCOUNTER 2018-07-13 18:09 | Emergency (ER) | payer OTHER ==
[~2018-07-13] VITALS: Ht 165.1 cm; Wt 105.2 kg
[~2018-07-13 18:09] MED LIST changes: +HYDROMORPHONE HC2 M1 PO; +INDOMETHACIN25 M1 PO
[2018-07-13 21:30] VITALS: BP 103/63
--- NOTE | 2018-07-13 21:45 | ED GENERAL ADULT ---
History of Present Illness General Chief Complaint: General Adult Stated Complaint: "EYE INFECTION & BACTERIAL INFECTION IN THE GROIN" Source: patient Exam Limitations: no limitations Vital Signs & Intake/Output Vital Signs & Intake/Output Vital Signs Date Time Temp Pulse Resp B/P B/P Pulse O2 O2 Flow FiO2 Mean Ox Delivery Rate 07/13 2130 98.6 98 18 103/63 97 Room Air 07/13 1821 96.3 110 18 118/70 95 Room Air Room Air ED Intake and Output 07/14 0000 07/13 1200 Intake Total Output Total Balance Patient 232 lb Weight Weight Reported by Patient Measurement Method Allergies Coded Allergies: No Known Allergies (04/03/18) Reconcile Medications Cephalexin (Keflex) 500 MG CAPSULE 1 CAP PO 4 TIMES/DAY INFECTION X 2 WEEKS Hydromorphone HCl 2 MG TABLET 1-2 TAB PO Q4P PRN PAIN SCALE . Indomethacin 25 MG CAPSULE 1 CAP PO TID pericarditis with food Indomethacin 25 MG CAPSULE 25 MG PO TID pericarditis . Insulin Detemir (Levemir Flextouch) 100 UNIT/ML (3 ML) INSULN.PEN 60 U SC QHS DM (Reported) Metformin HCl (Glucophage) 1,000 MG TABLET 1 TAB PO BID DIABETES (Reported) Polytrim (Polytrim Eye Drops) 10,000 UNIT-1 MG/ML DROPS 2 GTT OPH Q6 conjunctivitis x 7 days.. TO LEFT EYE Sulfamethoxazole/Trimethoprim (Bactrim Ds Tablet) 800 MG-160 MG TABLET 1 TAB PO BID INFECION Valsartan (Diovan) 80 MG TABLET 1 TAB PO DAILY BP (Reported) Triage Note: TRIAGE: 57 Y/O FEMALE PRESENTS C/O BILATERAL EYE INFECTION WELL AN INFECTION IN HER GROIN. "IT WAS LIKE A PIMPLE THAT WOULDN'T COME TO A HEAD, SO I TRIED TO MAKE IT COME TO A HEAD, AND THEN I PUT GAUZE ON IT. AND NOW IT'S LIKE EATING AT MY SKIN." Triage Nurses Notes Reviewed? yes HPI: 57 YO WOMAN presents with 2 issues. "I have a red itchy scratchy eye" for the past 1-2 days. She notes that she has contact lenses. She notes also that she has an area of drainage, redness, tenderness in her right groin. "It was really red and swollen, and then it popped and a lot of drainage came out. No fever, chills, nausea, vomiting, diarrhea. She is otherwise well. (Allie YOU,Nico Valera) Past History Travel History Traveled to [place] past 21 day No Medical History Any Pertinent Medical History? see below for history Neurological: peripheral neuropathy, vertigo EENT: hearing loss Cardiovascular: hypertension, pericardial effusion Respiratory: bronchitis, COPD, obstructive sleep apnea Musculoskeletal: FRACTURE (L ANKLE/R ARM) Psychiatric: anxiety Endocrine: diabetes, obesity Other Medical Hx: drainage of abcess on buttock left ankle and right humeral fractures History of MRSA: No History of VRE: No History of CDIFF: No Surgical History Surgical History: breast biopsy, , PILONIDAL CYST REMOVAL tubal ligation Psychosocial History Who do you live with Family Services at Home None What is your primary language French Tobacco Use: Current Daily Use Daily Tobacco Use Amount/Type: => 5 Cigarettes daily ETOH Use: occasional use Illicit Drug Use: denies illicit drug use Family History Hx Contributory? No (Allie YOU,Nico Valera) Review of Systems Review of Systems Constitutional: Reports: no symptoms. EENTM: Reports: no symptoms. Respiratory: Reports: no symptoms. Cardiovascular: Reports: no symptoms. GI: Reports: no symptoms. Genitourinary: Reports: no symptoms. Musculoskeletal: Reports: no symptoms. Skin: Reports: no symptoms. Neurological/Psychological: Reports: no symptoms. Hematologic/Endocrine: Reports: no symptoms. Immunologic/Allergic: Reports: no symptoms. All Other Systems: Reviewed and Negative (Allie YOU,Nico Valera) Physical Exam Physical Exam General Appearance: well developed/nourished, mild distress Head: atraumatic, normal appearance Eyes: Left: other (conjunctival injection). Ears, Nose, Throat: normal pharynx, normal ENT inspection Neck: normal inspection, supple, full range of motion, limited range of motion Respiratory: normal breath sounds, chest non-tender, no respiratory distress, quiet respiration, lungs clear Cardiovascular: regular rate/rhythm Gastrointestinal: normal bowel sounds, soft, non-tender Back: normal inspection Extremities: right groin with area of 4x6cm area of induration. There is a 1cm opening into an abscess that is freely draining. Neurologic/Psych: no motor/sensory deficits, awake, alert, oriented x 3 Skin: intact, warm/dry Core Measures ACS in differential dx? No CVA/TIA Diagnosis: No Sepsis Present: No Sepsis Focused Exam Completed? No (Allie YOU,Nico Valera) Progress Differential Diagnoses I considered the following diagnoses in my evaluation of the patient: conjunctivitis vs abscess vs other. Plan of Care: Orders Procedure Date/time Status EXTREMETIES CULTURE 07/13 2157 Active Microbiology 07/13 2155 EXTREMITIE: Culture & Sensitivity - RES GRAM NEGATIVE RODS BETA STREP GROUP B 07/13 2155 EXTREMITIE: Gram Stain - RES Initial ED EKG: none (Allie YOU,Nico Valera) Comments: 07/14/2018 12:44:37 PM I was contacted by the microbiology department regarding Hayley's culture results. She is growing group B beta-hemolytic strep along with scant gram-negative rods. I have updated her on this report. She is doing well and states her eye infection has resolved. I have provided her Dr. Daniel Mosquera' s contact information for follow-up care regarding her abscess (patient had arranged an appointment with Dr. Lozano, having mistaken him for general surgeon) . She should be well covered with the current antibiotics. (Samra YOU,Abraham De La O) Departure Departure Disposition: HOME OR SELF CARE Condition: Stable Clinical Impression Primary Impression: Abscess Secondary Impressions: Conjunctivitis Referrals: Nino YOU,Ross Mcduffie (PCP/Family) Departure Forms: Customer Survey General Discharge Information Prescriptions: Current Visit Scripts Cephalexin (Keflex) 1 CAP PO 4 TIMES/DAY #56 CAP X 2 WEEKS Sulfamethoxazole/Trimethoprim (Bactrim Ds Tablet) 1 TAB PO BID #24 TAB Polytrim (Polytrim Eye Drops) 2 GTT OPH Q6 #20 ML x 7 days.. TO LEFT EYE Comments her right groin abscess is freely draining.... no more pus able to be expressed after gentle pressure... will treat with keflex and bactrim... close follow up advised in 24 hours. polytrim for conjunctivitis. (Allie YOU,Nico Valera) Critical Care Note Critical Care Note Critical Care Time: non-applicable (Nico Kelley MD)
[2018-07-13] MEDS ORDERED: BACTRIM DS TAB1 EACH PO (21:59)
[2018-07-13] MEDS ORDERED: KEFLEX500 M1 PO (21:59)
[2018-07-13] MEDS ORDERED: POLYTRIM EYE DR10 ML OPH (21:59)
== END 2018-07-13 22:24 ==
LOC: ERH 18:09
DX: L02.214 Cutaneous abscess of groin (principal); H10.9 Unspecified conjunctivitis; I10 Essential (primary) hypertension; I31.3 Pericardial effusion (noninflammatory); J44.9 Chronic obstructive pulmonary disease, unspecified; G47.33 Obstructive sleep apnea (adult) (pediatric); E11.9 Type 2 diabetes mellitus without complications
CPT/HCPCS: 87070; 87147